=== PATIENT | male | born 1985 | race Caucasian/White ===

== ENCOUNTER 2020-12-17 11:32 | Emergency (ER) | payer BC, OTHER ==
[2020-12-17 13:56] LABS: HEMOGLOBIN 14.5 gm/dl (14.0-17.5); RED BLOOD COUNT 5.1 M/UL (4.20-5.50); WHITE BLOOD COUNT 14.3 K/UL (4.5-11.0)
[2020-12-17 14:15] LABS: BUN/CREATININE RATIO 14 (0-10)
[2020-12-17] MEDS ORDERED: CLEOCIN HCL150 MG PO (14:59)
== END 2020-12-17 15:46 | disposition home or self-care (01) ==
LOC: ER1 11:32
PROVIDERS: Emergency Medicine
DX: L03.115 Cellulitis of right lower limb (principal); I10 Essential (primary) hypertension
CPT/HCPCS: 73564; 80053; 84550; 85025; 86140; 96365; 99283